=== PATIENT | female | born 1935 | race Caucasian/White ===

== ENCOUNTER → 2016-07-07 | Outpatient (CLI) | payer OTHER | END | disposition home or self-care (01) | DX: M16.11 Unilateral primary osteoarthritis, right hip (principal); M25.551 Pain in right hip; M25.651 Stiffness of right hip, not elsewhere classified; R26.2 Difficulty in walking, not elsewhere classified; M62.89 Other specified disorders of muscle | CPT/HCPCS: 97110 GP; 97150 GO; 97161 GP; 97165 GO; G8978 GP; G8979 GP; G8980 GP; G8987 GO; G8988 GO; G8989 GO ==

== ENCOUNTER 2016-08-10 08:50 | Inpatient (IN) | payer OTHER ==
[~2016-08-10] VITALS: Ht 162.6 cm; Wt 66.8 kg
[~2016-08-10 08:50] MED LIST: ALLEGRA ALLERG180 MG PO; BUSPAR10 MG PO; COUMADIN2 MG PO; COUMADIN3 MG PO; DILTIAZEM 24HR360 M1 PO; PRAVACHOL40 MG PO; WOMEN'S DAILY1 EAC4 PO
[2016-08-10 09:22] VITALS: BP 113/65
[2016-08-10 10:14] LABS: INTER. NORMALIZED RATIO 1.1
[2016-08-10 15:10] LABS: HEMATOCRIT 38.8 % (36.0-46.0); MCH 34.2 PG (29.0-34.0); MCHC 33.2 G/DL (30.0-36.0); MCV 102.9 FL (83-99); MEAN PLAT.VOLUME 10.9 uM^3 (9.5-12.4); PLATELET COUNT 189 K/uL (156-360); RBC DIS.WIDTH-CV 12.6 % (11.8-14.6); RBC DIS.WIDTH-SD 47.1 % (39-53); RED BLOOD COUNT 3.77 M/uL (3.80-5.20); WHITE BLOOD COUNT 10.5 K/uL (4.1-10.2)
[2016-08-10 16:15] VITALS: BP 113/64
[2016-08-10 20:31] VITALS: BP 101/59
[2016-08-11] VITALS (8 sets, daily range): BP systolic 80–98; BP diastolic 46–58
[2016-08-11 07:12] LABS: HEMATOCRIT 38.7 % (36.0-46.0); MCV 104.9 FL (83-99)
[2016-08-11 07:39] LABS: ANION GAP 11 MEQ/L (2-14); CHLORIDE 104 MEQ/L (99-109); GFR ESTIMATE (CALCULATED) > 59 mL/min/; GLUCOSE 147 mg/dL (70-99); POTASSIUM 3.8 MEQ/L (3.7-5.4); SAMPLE HEMOLYSIS CHECK 0; SAMPLE ICTERIC CHECK 0; SAMPLE LIPEMIA CHECK 0; SODIUM 141 MEQ/L (136-147); UREA NITROGEN (BUN) 15 mg/dL (9-23)
[2016-08-11 11:05] LABS: INTER. NORMALIZED RATIO 1.1; PROTHROMBIN TIME 11.2 (9.2-11.2)
[2016-08-12 03:45] VITALS: BP 97/58
[2016-08-12 05:03] LABS: INTER. NORMALIZED RATIO 1.2; PROTHROMBIN TIME 11.9 (9.2-11.2)
[2016-08-12 08:00] VITALS: BP 97/65
[2016-08-12 12:00] VITALS: BP 88/53
[2016-08-12 20:12] VITALS: BP 96/52
[2016-08-13 00:05] VITALS: BP 89/52
[2016-08-13 04:30] VITALS: BP 88/53
[2016-08-13 04:53] LABS: INTER. NORMALIZED RATIO 1.6; PROTHROMBIN TIME 16.3 (9.2-11.2)
[2016-08-13 08:07] VITALS: BP 104/65
[2016-08-13] MEDS ORDERED: ENDOCET 5-3251 EACH PO (08:54)
[2016-08-13] MEDS ORDERED: SENNA PLUS TAB1 EACH PO (08:54)
[2016-08-13] MEDS ORDERED: COUMADIN5 MG PO (13:26)
[2016-08-13] MEDS ORDERED: LOVENOX40 MG/0.4 SC (13:27)
[2016-08-13] MEDS ORDERED: CLARITIN,ALAVAR10 MG PO (13:27)
[2016-08-13] MEDS ORDERED: PERCOCET 5/31 TABLET PO (13:28)
[2016-08-13] MEDS ORDERED: PERCOCET 10/1 TABLET PO (13:29)
== END 2016-08-13 11:10 | DRG 470 ==
LOC: 2SOUTH 08:50 → 3WEST 15:59
PROVIDERS: Nurse Practitioner Family; Orthopaedic Surgery
DX: M16.11 Unilateral primary osteoarthritis, right hip (principal); M96.89 Other intraoperative and postprocedural complications and disorders of the musculoskeletal system; M85.80 Other specified disorders of bone density and structure, unspecified site; E78.5 Hyperlipidemia, unspecified; I10 Essential (primary) hypertension; F41.9 Anxiety disorder, unspecified; Z96.611 Presence of right artificial shoulder joint; Y81.3 Surgical instruments, materials and general- and plastic-surgery devices (including sutures) associated with adverse incidents
CPT/HCPCS: 73502; 76000; 80048; 85014; 85018; 85027; 85610; 94799; 97530 GP; J0171; J0690; J1170; J1650; J1885; J2405; J2795; J3010; J7050; S0020

== ENCOUNTER 2016-08-13 10:48 | Inpatient (IN) | payer OTHER ==
[~2016-08-13] VITALS: Ht 162.6 cm; Wt 68.4 kg
[~2016-08-13 10:48] MED LIST changes: +ENDOCET 5-3251 EACH PO; +SENNA PLUS TAB1 EACH PO
[2016-08-13] MEDS ORDERED: COUMADIN5 MG PO (13:26)
[2016-08-13] MEDS ORDERED: CLARITIN,ALAVAR10 MG PO (13:27)
[2016-08-13] MEDS ORDERED: LOVENOX40 MG/0.4 SC (13:27)
[2016-08-13] MEDS ORDERED: PERCOCET 5/31 TABLET PO (13:28)
[2016-08-13] MEDS ORDERED: PERCOCET 10/1 TABLET PO (13:29)
[2016-08-13 15:50] VITALS: BP 98/53
[2016-08-14 00:08] VITALS: BP 105/56
[2016-08-14 05:25] VITALS: BP 113/78
[2016-08-14 05:26] LABS: INTER. NORMALIZED RATIO 2.2; PROTHROMBIN TIME 22.5 (9.2-11.2)
[2016-08-14 05:29] LABS: HEMATOCRIT 31.1 % (36.0-46.0); MCH 34.1 PG (29.0-34.0); MCHC 33.1 G/DL (30.0-36.0); MEAN PLAT.VOLUME 10.9 uM^3 (9.5-12.4); PLATELET COUNT 189 K/uL (156-360); RBC DIS.WIDTH-SD 43.6 % (39-53); RED BLOOD COUNT 3.02 M/uL (3.80-5.20)
[2016-08-14 05:41] LABS: CHLORIDE 104 mEq/L (99-109); POTASSIUM 4.1 mEq/L (3.7-5.4); SODIUM 137 mEq/L (136-147)
[2016-08-14 05:44] LABS: GLUCOSE 97 mg/dL (70-99)
[2016-08-14 05:45] LABS: TOTAL BILIRUBIN 0.4 mg/dL (0.0-1.0)
[2016-08-14 05:47] LABS: ALKALINE PHOSPHATASE 74 IU/L (3-129); GFR ESTIMATE (CALCULATED) > 59 mL/min/
[2016-08-14 05:48] LABS: UREA NITROGEN (BUN) 16 mg/dL (9-23)
[2016-08-14 06:20] LABS: ANION GAP 9 MEQ/L (2-14)
[2016-08-14 16:18] VITALS: BP 96/54
[2016-08-15 06:07] VITALS: BP 110/57
[2016-08-15 15:39] VITALS: BP 111/62
[2016-08-15 20:10] LABS: INTER. NORMALIZED RATIO 3.4
[2016-08-15 20:35] LABS: PROTHROMBIN TIME 35.5 (9.2-11.2)
[2016-08-16 05:47] VITALS: BP 124/62
[2016-08-16 07:37] LABS: INTER. NORMALIZED RATIO 2.7; PROTHROMBIN TIME 28.1 (9.2-11.2)
[2016-08-16 08:06] LABS: BILIRUBIN NEGATIVE; BLOOD NEGATIVE; COLOR YELLOW ((YELLOW)); GLUCOSE (STRIP) NEGATIVE; KETONES 5; LEUKOCYTES NEGATIVE; NITRITE NEGATIVE; PROTEIN (STRIP) NEGATIVE; SPECIFIC GRAVITY 1.013 (1.000-1.030); UROBILINOGEN 0.2 MG/DL (0.2-1.0)
[2016-08-16 08:08] LABS: ADD MIUA? NO; UCUL ADDED? NO
[2016-08-16 16:00] VITALS: BP 112/58
[2016-08-17 05:03] VITALS: BP 112/57
[2016-08-17 07:54] LABS: INTER. NORMALIZED RATIO 2.5; PROTHROMBIN TIME 25.8 (9.2-11.2)
[2016-08-17 15:02] VITALS: BP 99/64
[2016-08-18 03:42] VITALS: BP 109/73
[2016-08-18 06:44] LABS: INTER. NORMALIZED RATIO 3.2; PROTHROMBIN TIME 33.7 (9.2-11.2)
[2016-08-18 15:04] VITALS: BP 96/53
[2016-08-19 04:57] VITALS: BP 109/66
[2016-08-19 07:14] LABS: INTER. NORMALIZED RATIO 3.2; PROTHROMBIN TIME 33.5 (9.2-11.2)
[2016-08-19 15:10] VITALS: BP 111/58
[2016-08-20 05:34] VITALS: BP 110/70
[2016-08-20 06:57] LABS: INTER. NORMALIZED RATIO 2.2; PROTHROMBIN TIME 22.8 (9.2-11.2)
[2016-08-20 15:16] VITALS: BP 118/58
[2016-08-21 05:01] VITALS: BP 110/61
[2016-08-21 06:33] LABS: INTER. NORMALIZED RATIO 1.9; PROTHROMBIN TIME 19.5 (9.2-11.2)
[2016-08-21 15:17] VITALS: BP 113/65
[2016-08-22 06:10] LABS: INTER. NORMALIZED RATIO 1.5; PROTHROMBIN TIME 15.9 (9.2-11.2)
[2016-08-22 06:25] VITALS: BP 109/74
[2016-08-22 11:22] LABS: ADD MIUA? YES; BILIRUBIN NEGATIVE; BLOOD MODERATE; COLOR AMBER ((YELLOW)); GLUCOSE (STRIP) NEGATIVE; KETONES NEGATIVE; LEUKOCYTES MODERATE; NITRITE NEGATIVE; PROTEIN (STRIP) 100; SPECIFIC GRAVITY 1.029 (1.000-1.030)
[2016-08-22 13:36] LABS: BACTERIA NONE SEEN /HPF; EPITHELIAL CELLS RARE /HPF; MUCUS TRACE /LPF; RED BLOOD CELLS NONE SEEN /HPF (0-5); WHITE BLOOD CELLS TNTC /HPF (0-5); WHITE BLOOD CELLS CLUMP MANY /HPF (0-5)
[2016-08-22 15:54] VITALS: BP 101/63
[2016-08-23 04:21] VITALS: BP 130/77
[2016-08-23 06:05] LABS: INTER. NORMALIZED RATIO 1.5; PROTHROMBIN TIME 15.4 (9.2-11.2)
[2016-08-23 15:59] VITALS: BP 104/58
[2016-08-24 05:06] LABS: INTER. NORMALIZED RATIO 1.7; PROTHROMBIN TIME 17.4 (9.2-11.2)
[2016-08-24 05:07] VITALS: BP 127/60
[2016-08-24 15:13] VITALS: BP 107/68
[2016-08-25 04:24] VITALS: BP 108/59
[2016-08-25 06:06] LABS: INTER. NORMALIZED RATIO 1.5; PROTHROMBIN TIME 15.4 (9.2-11.2)
[2016-08-25] MEDS ORDERED: TRAMADOL HCL50 MG PO (13:39)
[2016-08-25] MEDS ORDERED: FLORASTOR250 MG PO (13:39)
[2016-08-25] MEDS ORDERED: CEFTIN500 MG PO (13:39)
[2016-08-25] MEDS ORDERED: LIDOCAINE700 MG TD (13:39)
[2016-08-25 16:38] VITALS: BP 99/58
[2016-08-26 05:27] VITALS: BP 102/58
[2016-08-26 07:17] LABS: BASOPHIL COUNT 0.1 K/uL (0-0.1); EOSINOPHIL (%) 1.7 % (0-5); EOSINOPHIL COUNT 0.1 K/uL (0-0.3); HEMATOCRIT 35.1 % (36.0-46.0); IMMATURE GRANULOCYTE (%) 0.1 % (0.0-0.7); LYMPHOCYTE COUNT 1.9 K/uL (1.0-2.8); MCH 33.7 PG (29.0-34.0); MCHC 32.5 G/DL (30.0-36.0); MCV 103.8 FL (83-99); MONOCYTE (%) 7.5 % (3-12); MONOCYTE COUNT 0.6 K/uL (0-0.8); NEUTROPHIL (%) 67.2 % (45-76); NEUTROPHIL COUNT 5.4 K/uL (1.8-6.4); RBC DIS.WIDTH-CV 13.1 % (11.8-14.6); RBC DIS.WIDTH-SD 49.1 % (39-53); RED BLOOD COUNT 3.38 M/uL (3.80-5.20); WHITE BLOOD COUNT 8.1 K/uL (4.1-10.2)
[2016-08-26 07:18] LABS: INTER. NORMALIZED RATIO 1.5
[2016-08-26 07:38] LABS: ALKALINE PHOSPHATASE 80 IU/L (3-129); ANION GAP 8 MEQ/L (2-14); CHLORIDE 103 MEQ/L (99-109); GFR ESTIMATE (CALCULATED) > 59 mL/min/; GLUCOSE 88 mg/dL (70-99); POTASSIUM 3.5 MEQ/L (3.7-5.4); SAMPLE HEMOLYSIS CHECK 0; SAMPLE ICTERIC CHECK 0; SAMPLE LIPEMIA CHECK 0; SODIUM 141 MEQ/L (136-147); TOTAL BILIRUBIN 0.5 MG/DL (0.0-1.0); UREA NITROGEN (BUN) 13 mg/dL (9-23)
[2016-08-26 07:41] LABS: MEAN PLAT.VOLUME 9.6 uM^3 (9.5-12.4)
[2016-08-26 07:51] LABS: PLATELET COUNT 478 K/uL (156-360)
[2016-08-26] MEDS ORDERED: COUMADIN1 MG PO (09:42)
[2016-08-26] MEDS ORDERED: COUMADIN2 MG PO (12:26)
== END 2016-08-26 14:30 | disposition home health service (06) | DRG 945 ==
LOC: 3WEST 10:48
PROVIDERS: Physical Medicine & Rehabilitation Pain Medicine; Psychiatry & Neurology Neurology
PROC: F07M0ZZ Range of Motion and Joint Mobility Treatment of Musculoskeletal System - Whole Body (ICD-10-PCS; principal; 2016-08-13)
DX: R53.1 Weakness (principal); N39.0 Urinary tract infection, site not specified; D62 Acute posthemorrhagic anemia; Z96.641 Presence of right artificial hip joint; M16.11 Unilateral primary osteoarthritis, right hip; I10 Essential (primary) hypertension; I48.2 Chronic atrial fibrillation; E78.5 Hyperlipidemia, unspecified; M85.80 Other specified disorders of bone density and structure, unspecified site; F41.9 Anxiety disorder, unspecified; Z96.651 Presence of right artificial knee joint; Z79.01 Long term (current) use of anticoagulants; B96.4 Proteus (mirabilis) (morganii) as the cause of diseases classified elsewhere; G89.18 Other acute postprocedural pain; M17.12 Unilateral primary osteoarthritis, left knee
CPT/HCPCS: 73502; 80053; 81003; 85025; 85027; 85610; 87077; 87086; 87186; 97110 GO; 97530 GP; J1650